=== PATIENT | male | born 1970 | race African-American/Black ===

== ENCOUNTER 2019-12-17 17:09 | Inpatient (IN) | payer BC, SELFPAY ==
[2019-12-17] VITALS (9 sets, daily range): BP systolic 134–173; BP diastolic 67–91; PULSE 88–111; RESP 15–28; TEMP 36.9–38.1; O2SAT 92–97; BMI 40.9; BMI 39.8; BMI 39.9
--- NOTE | 2019-12-17 17:33 | ED.VIS.GEN ---
History of Present Illness Chief Complaint: Fever Informant: Patient Onset: Today Context: Gradual Onset Timing: Continuous Quality: subjective Current Severity: Moderate Maximum Severity: Moderate Worsened by: n/a Relieved by: n/a; hasn't taken anything Associated Symptoms: none except mild malaise Narrative: Patient denies any respiratory symptoms, cough, change in taste or smell, congestion, vomiting or diarrhea. No chest or abdominal pain. No problems urinating recently. He has no idea why he may have a fever. He states 7 months or so ago, he had cellulitis on his left velez that was treated successfully with antibiotics. Recent Illness/Hospitalization: No - Past Medical History (1) Anxiety and depression Status: Chronic (2) Type 2 diabetes mellitus Status: Chronic Past Medical History - Allergies and Home Meds Allergies/Adverse Reactions: Allergies hydromorphone [From Dilaudid] Adverse Reaction (Verified 12/17/19 17:11) Low blood pressure meperidine [From Demerol] Adverse Reaction (Verified 12/17/19 17:11) Itching Sulfa (Sulfonamide Antibiotics) Adverse Reaction (Verified 12/17/19 17:11) NEEDS FOLLOW-UP STEROIDS Allergy (Uncoded 12/17/19 17:11) Anaphylaxis Primary Care Physician: [facility] Doctor,Out of [NON-STAFF] - Surgical History: appendectomy - Along with partial colectomy due to complications of ruptured appendicitis Lives: With Family - in [place]; 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 Denies: Chills, Sweats Eyes: Denies: Visual changes - bilaterally, Diplopia ENT: Denies: Bilateral ear pain, Rhinorrhea, Sore throat Cardiovascular: Denies: Chest pain, Palpitations Respiratory: Denies: Dyspnea, Cough, Dyspnea on exertion Gastrointestinal: Denies: Abdominal pain, Nausea, Vomiting, Diarrhea, Melena, Hematochezia Genitourinary: Denies: Dysuria, Hematuria, Frequency Musculoskeletal: Denies: Neck pain, Back pain, Swelling, Extremity Pain Skin: Denies: Rash, Wounds Neurological: Denies: Headache, Weakness, Numbness Physical Exam Vital Signs/Narrative: Vital Signs Temp Pulse Resp BP Pulse Ox 12/17/19 17:23 108 H 17 164/82 H 92 12/17/19 17:12 100.2 F H 99 15 161/85 H 92 Inital Vital Signs reviewed: Yes General: Well nourished, Well developed, Obese, No Acute Distress Head: Normocephalic, Atraumatic Eyes: Perrl, EOMI ENT: Moist mucous membranes, No rhinorrhea. Negative for: Sinus tenderness Neck: Supple, Nontender, No lymphadenopathy Cardiovascular: Regular rate, Regular rhythm, No murmurs. Negative for: Tachycardia Respiratory: No distress, CTA bilaterally, Chest nontender Abdomen: Soft, Nontender, Nondistended, Normal bowel sounds Back: Nontender, Normal Inspection. Negative for: CVA tenderness Extremities: No edema, Tenderness - Along rash on left velez, full range of motion throughout the left lower extremity and all other extremities., - - No inguinal lymphadenopathy bilaterally. Skin: Normal color, No Trauma, Rash - Scattered, tender, blanching erythematous rash left velez only. No abscess, swelling, bullae, petechiae/purpura., - - No lymphangitis left lower extremity. Erythema limited to the left velez and does not progress to the knee. Neurological: Alert, Oriented x3, Cranial nerves II-XII grossly intact, Normal Strength, Normal Sensation, Normal Gait Psychological: Normal affect, Normal Mood Diagnostic/Tx/Re-eval Impressions Chest X-Ray 12/17/19 17:37 IMPRESSION: Left hemidiaphragm is mildly elevated. There is left costophrenic angle blunting which may represent small effusion or pleural reaction. Electronically Signed: Buddy Trujillo MD at 18:18 EDT , Service support , 12/17/19 17:37 Chest 1 View (Portable) [RAD] Stat Laboratory Results 12/17/19 12/17/19 12/17/19 17:54 17:54 17:54 WBC 17.2 H RBC 5.20 Hgb 16.2 Hct 46.9 MCV 90.2 MCH 31.2 MCHC 34.5 RDW Std Deviation 43.9 RDW Coeff of Lupe 13.2 Plt Count 169 MPV 10.0 Immature Gran % (Auto) 0.300 Neut % (Auto) 86.9 H Lymph % (Auto) 6.4 L [place] % (Auto) 6.0 Eos % (Auto) 0.1 Baso % (Auto) 0.3 Absolute Neuts (auto) 14.9 H Absolute Lymphs (auto) 1.09 Nucleated RBC % 0 PT 12.8 INR 1.0 APTT 31.2 Sodium 133 L Potassium 4.7 Chloride 100 Carbon Dioxide 23.0 Anion Gap 10 BUN 13 Creatinine 1.04 Estim Creat Clear Calc 92.23 Est GFR (MDRD) Af Amer 97 Est GFR (MDRD) Non-Af 80 BUN/Creatinine Ratio 12.5 Glucose 195 H Lactic Acid Calcium 8.8 Total Bilirubin 0.90 AST 50 H ALT 54 Alkaline Phosphatase 91 Troponin I < 0.015 Total Protein 7.2 Albumin 3.7 Globulin 3.5 Albumin/Globulin Ratio 1.1 Urine Color Urine Clarity Urine pH Ur Specific [place] Urine Protein Urine Glucose (UA) Urine Ketones Urine Occult Blood Urine Nitrite Urine Bilirubin Urine Urobilinogen Ur Leukocyte Esterase Urine RBC Urine WBC Ur Squamous Epith Cells Urine Bacteria Urine Mucus 12/17/19 12/17/19 17:54 18:10 WBC RBC Hgb Hct MCV MCH MCHC RDW Std Deviation RDW Coeff of Lupe Plt Count MPV Immature Gran % (Auto) Neut % (Auto) Lymph % (Auto) [place] % (Auto) Eos % (Auto) Baso % (Auto) Absolute Neuts (auto) Absolute Lymphs (auto) Nucleated RBC % PT INR APTT Sodium Potassium Chloride Carbon Dioxide Anion Gap BUN Creatinine Estim Creat Clear Calc Est GFR (MDRD) Af Amer Est GFR (MDRD) Non-Af BUN/Creatinine Ratio Glucose Lactic Acid 1.4 Calcium Total Bilirubin AST ALT Alkaline Phosphatase Troponin I Total Protein Albumin Globulin Albumin/Globulin Ratio Urine Color Yellow Urine Clarity Sl. Cloudy Urine pH 6.5 Ur Specific [place] 1.010 Urine Protein Negative Urine Glucose (UA) Normal Urine Ketones 15 H Urine Occult Blood Negative Urine Nitrite Negative Urine Bilirubin Negative Urine Urobilinogen Normal Ur Leukocyte Esterase Negative Urine RBC 0 SEEN Urine WBC 0 SEEN Ur Squamous Epith Cells 0-5 SEEN Urine Bacteria 0 SEEN Urine Mucus 0 SEEN - Medical Decision Making Patient has what appears to possibly be early cellulitis of the left lower leg. Before I found it on exam, he had not noticed the redness. It is mildly tender, and after we discussed it, he states that this is what he thinks his cellulitis before looked like early on. He states he initially was seen in the emergency department and they did not think it was cellulitis but then he saw his doctor and was diagnosed with cellulitis, put on antibiotics, which eventually took care of it. He does not remember the antibiotic. Septic work-up was performed here to rule out other causes, especially because his oxygen levels are borderline low, we put him on some supplemental nasal cannula oxygen while working him up, providing empiric Unasyn after cultures were obtained. He does have a leukocytosis, the rest of the work-up other than borderline hyperglycemia 195, is relatively unremarkable, but he meets criteria for sepsis with his fever that continue to increase during the ED course despite initially treating with acetaminophen 1000 mg, and his leukocytosis. His chest x-ray does not show anything focal, a mildly elevated left hemidiaphragm along with mild blunting is noted. After the above treatment he was removed from his oxygen and maintained saturations above 90%. At this time I do not see any sign of a DVT, nor do I think he needs to be evaluated for pulmonary embolus. However, since his fever increased he felt worse. In trying to ambulate him, he felt very lightheaded and had a lot of pain with trying to bear weight on his left lower extremity. The cellulitis that was very faint initially on his left lower leg/velez is now much more prominent and obvious, although it has not spread. There is no subcutaneous emphysema and I think this is unlikely to be necrotizing fasciitis. However I think it is reasonable to admit him with continued IV antibiotic therapy. Discussed with hospitalist. ED Disposition - Plan for ED Patient: Disposition: Acute Care Hospital [facility] Diagnosis: Cellulitis of left lower leg, Hyperglycemia due to type 2 diabetes mellitus, Sepsis Referrals: [facility] Doctor,Out of [NON-STAFF] -
--- NOTE | 2019-12-17 17:37 | RAD_ITS ---
STUDY: X-RAY CHEST REASON FOR EXAM: Male, 49 years old. FEVER TECHNIQUE: Single AP portable view of the chest. COMPARISON: None. FINDINGS: The lungs are clear and expanded. The left hemidiaphragm is mildly elevated. There is left costophrenic angle blunting. Normal size heart. Normal mediastinum and aleks. Normal visualized pulmonary arteries. Normal visualized aortic arch and descending thoracic aorta. Normal visualized thoracic spine. Normal visualized ribs, clavicles, and shoulders. There is no demonstrated abnormality of the visualized soft tissue structures of the upper abdomen. RAD/Chest 1 View (Portable) IMPRESSION: Left hemidiaphragm is mildly elevated. There is left costophrenic angle blunting which may represent small effusion or pleural reaction. Electronically Signed: Buddy Trujillo MD at 18:18 EDT , Service support ,
[2019-12-17] MEDS: Acetaminophen 500 MG Tablet 1000 MG PO (17:53)
[2019-12-17 18:10] LABS: Absolute Lymphocyte Count 1.09 X10^3/uL (0.83-4.51); Absolute Neutrophil Count 14.9 X10^3/uL (2.0-7.7); Basophil# 0.05 X10^3/uL; Basophil% 0.3 % (0-1); Eosinophil# 0.01 X10^3/uL; Eosinophils% 0.1 % (0-5); Hematocrit 46.9 % (40-54); Hemoglobin 16.2 g/dL (13.0-16.5); Lymphocyte # 1.09 X10^3/ul (4.0); Lymphocyte % 6.4 % (19-41); Mean Corp Hgb Conc 34.5 g/dL (32-36); Mean Corpuscular Hgb 31.2 pg (27.0-32.0); Mean Corpuscular Volume 90.2 fL (80-94); Monocyte# 1.03 X10^3/uL; NRBC Flagged by Analyzer 0 % (0-5); Neutrophil # 14.92 X10^3/uL (2.7-7.7); Neutrophil % 86.9 % (47-70); Platelet Count 169 K/mm3 (150-450); RBC Distribution Width CV 13.2 % (11.6-14.6); RBC Distribution Width SD 43.9 fl (35.1-43.9); White Blood Count 17.2 K/mm3 (4.4-11.0)
[2019-12-17 18:15] LABS: Prothrombin Time (Protime)PT. 12.8 SECONDS (11.7-14.9)
[2019-12-17 18:16] LABS: Partial Thromboplast Time 31.2 Seconds (24.1-36.2)
[2019-12-17 18:24] LABS: ALB/GLOB Ratio 1.1 RATIO (0.9-2.4); AST(SGOT) 50 U/L (15-37); Alanine Aminotransfer ALT/SGPT 54 U/L (16-61); Albumin, Serum 3.7 g/dL (3.2-5.0); Alkaline Phosphatase 91 U/L (45-117); Anion Gap 10 (5-15); BUN 13 mg/dL (7-18); BUN/Creat Ratio 12.5 RATIO (10-20); Calcium,Total 8.8 mg/dL (8.5-10.1); Chloride 100 mmol/L (98-107); Creatinine, Serum 1.04 mg/dL (0.70-1.30); EST Glomerular Filtration Rate 80 mL/min (>60); Est Glom Filt Rate - Afr Amer 97 mL/min (>60); Estimated Creatinine Clearance 92.23 ml/min; Globulin 3.5 g/dL (2.2-4.2); Glucose 195 mg/dL (74-106); Potassium 4.7 mmol/L (3.5-5.1); Protein, Total 7.2 g/dL (6.4-8.2); Sodium Level 133 mmol/L (136-145)
[2019-12-17 18:29] LABS: Bacteria 0 SEEN /hpf (None Seen); Mucous, Urine 0 SEEN /hpf (<or=2+); Red Blood Cells-Urine 0 SEEN /hpf (0-5); White Blood Cells 0 SEEN /hpf (0-5)
[2019-12-17 18:33] LABS: Lactic Acid 1.4 mmol/L (0.4-1.9)
[2019-12-17 18:37] LABS: Color, Urine Yellow (Yellow); Glucose, Dipstick Normal (Normal); Ketone-Dipstick 15 mg/dl (Negative); Leukocyte Esterase-Dipstick Negative /ul (Negative); Nitrite-Dipstick Negative (Negative); Occult Blood-Urine Negative /ul (Negative); Protein-Dipstick Negative (Negative); Urine Bilirubin Dipstick Negative (Negative); Urine Clarity Sl. Cloudy (Clear); Urine Urobilinogen Normal (Normal); Urine pH 6.5 (5.0 - 8.0)
[2019-12-17 19:02] LABS: Squamous Epithelial Cells - UA 0-5 SEEN /hpf (0-5)
--- NOTE | 2019-12-17 20:42 | HP.PCM_ITS ---
Problem List (1) Fever and chills Status: Acute (2) Left leg redness Status: Acute History of Present Illness Date of Admission: 12/17/19 Chief Complaint: Fever and chills, left leg redness The patient is a 49 year old M who was seen in the emergency room at [facility] with a chief complaint of fever and chills which started today along with left leg redness and warmth. Patient denies any cough, he denies any diarrhea, he denies any chest pain. Work-up in the emergency room included labs which revealed a white blood cell count at 17.2, patient's lactic acid was not elevated, chemistry was remarkable for a sodium of 133, glucose of 195, and an AST of 50. Chest x-ray showed a slight elevation of the left hemidiaphragm, patient's temperature was 100.6 after administration of Tylenol. Examination revealed the patient's left lower leg to be reddened and warm, patient appeared flushed, physical exam is otherwise unremarkable. Patient will be admitted for acute sepsis secondary to left lower leg cellulitis, he was given Unasyn IV in the emergency room, I will switch him to Ancef 2 g every 8 hours when he is admitted to the hospital. Further note, patient states that he had an episode of cellulitis in that same leg a few months ago but was treated as an outpatient, he denies any history of MRSA. Past Medical History Past Medical History (Chronic Problems): Chronic Problems Anxiety and depression (Chronic) Type 2 diabetes mellitus (Chronic) Allergies hydromorphone [From Dilaudid] Adverse Reaction (Verified 12/17/19 17:11) Low blood pressure meperidine [From Demerol] Adverse Reaction (Verified 12/17/19 17:11) Itching Sulfa (Sulfonamide Antibiotics) Adverse Reaction (Verified 12/17/19 17:11) NEEDS FOLLOW-UP STEROIDS Allergy (Uncoded 12/17/19 17:11) Anaphylaxis Home Medications: Ambulatory Orders Medication Instructions Recorded Sertraline HCl [Zoloft] 25 mg PO DAILY 12/17/19 Surgical History: appendectomy - Along with partial colectomy due to complications of ruptured appendicitis, - - Craniotomy secondary to brain tumor Psychiatric History: Anxiety Lives: With Family - in [place]; 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 Denies: Anorexia, Night Sweats, Weakness, Weight Change, Fatigue Eyes: Denies: Cataracts, Conjunctivae Inflammation, Double vision, Drainage HEENT: Denies: Difficulty Swallowing, Dysphasia, Ear Pain, Eye Pain, Hearing Giana nges, Nasal bleeding, Nasal Congestion, Post Nasal Drip Cardiovascular: Denies: Chest Pain, Claudication, Chest Pressure, Chest Tightness, Edema, Heaviness, Palpitations Respiratory: Denies: Cough, Hemoptysis, Pleuritic Pain, Shortness of Breath, Shortness of breath at rest, Shortness of breath upon exertion, Sputum production Gastrointestinal: Denies: Abdominal Pain, Constipation, Diarrhea, Hematemesis, Hematochezia, Nausea, Melena, Vomiting Genitourinary: Denies: Dysuria, Frequency, Hematuria, Hesitancy, Urgency Musculoskeletal: Reports: Leg Pain - Left lower extremity redness and discomfort. Denies: Back Pain, Foot Pain, Hand Pain, Joint Pain, Joint stiffness, Joint swelling, Joint Tenderness Skin: Reports: Rash - Over his left lower leg. Denies: Dryness, Jaundice, Pruritis Neurological: Denies: Blurred vision, Double vision, Change in Speech, Slurred speech, Difficulty swallowing, Focal weakness, Headaches, Incoordination, Numbness, Tingling Psychiatric: Reports: Anxiety. Denies: Depression, Homicidal Ideations, Suicidal Ideations Endocrine: Denies: Change in Body Habitus, Heat/ Cold Intolerance, Polydipsia, Polyuria Hematologic/ Lymphatic: Denies: Adenopathy, Anemia, Easy Bruising, Easy Bleeding, Petechiae, Purpura VTE Information - Inpt Only VTE Present on Admission: No VTE Mechan Device Prophylaxis: None VTE Pharm Prophylaxis ordered?: Yes Patient Problems: Active and Suspected Problems Cellulitis of left lower leg (Acute) Hyperglycemia due to type 2 diabetes mellitus (Acute) Sepsis (Acute) Fever and chills (Acute) Left leg redness (Acute) - Physical Exam Vitals/I&O's: Vital Signs Temp Pulse Resp BP Pulse Ox 100.6 F H 106 H 26 H 145/90 H 92 12/17/19 20:00 12/17/19 20:00 12/17/19 20:00 12/17/19 20:00 12/17/19 20:00 Oxygen Flow Rate (L/min) 2 Oxygen Delivery Method Room Air Weight: 137 kg Body Mass Index (BMI) 40.9 Intake and Output for Last 24 Hours 12/15/19 12/16/19 12/17/19 23:59 23:59 23:59 Intake Total 112 / 112 Balance 112 / 112 General: Alert, Oriented x3, Cooperative, Well developed, Well nourished, - - Patient's face appears flushed and reddened HEENT: Atraumatic, PERRLA, EOMI, Normocephalic Oral: Moist Mucosa Neck: Supple, No JVD, Negative Carotid Bruits, Trachea Midline, Thyroid Normal Size and Texture Lungs: Clear to auscultation, Normal air movement, No rhonchi, No wheeze, No rales Cardiovascular: Regular rate, Regular Rhythm, Normal S1, Normal S2, No murmurs, Tachycardic Abdomen: Bowel Sounds Present, Soft, Non Tender, Non-Distended, Obese Extremities: No clubbing, No cyanosis, Capillary Refill Less than 3 Seconds, Edema - There is generalized edema to the left lower leg along with redness and warmth over the left lower leg, Tenderness - Over left lower leg Skin: No breakdown, Rash Present - Over the left lower leg Musculoskeletal: Tenderness - Tenderness to palpation over the left lower leg Neurological: Cranial nerves II-XII grossly intact, Neuro grossly intact, Sensory exam intact to light touch and pain, Coordination normal Psych/Mental Status: Normal Affect, Appropriate, Alert and oriented to time, place, person, mood and affect Laboratory Results 12/17/19 17:54: Sodium 133 L, Potassium 4.7, Chloride 100, Carbon Dioxide 23.0, Anion Gap 10, BUN 13, Creatinine 1.04, Estim Creat Clear Calc 92.23, Est GFR (MDRD) Af Amer 97, Est GFR (MDRD) Non-Af 80, BUN/Creatinine Ratio 12.5, Glucose 195 H, Calcium 8.8, Total Bilirubin 0.90, AST 50 H, ALT 54, Alkaline Phosphatase 91, Troponin I < 0.015, Total Protein 7.2, Albumin 3.7, Globulin 3.5, Albumin/Globulin Ratio 1.1 12/17/19 17:54: WBC 17.2 H, RBC 5.20, Hgb 16.2, Hct 46.9, MCV 90.2, MCH 31.2, MCHC 34.5, RDW Std Deviation 43.9, RDW Coeff of Lupe 13.2, Plt Count 169, MPV 10.0, Immature Gran % (Auto) 0.300, Neut % (Auto) 86.9 H, Lymph % (Auto) 6.4 L, [place] % (Auto) 6.0, Eos % (Auto) 0.1, Baso % (Auto) 0.3, Absolute Neuts (auto) 14.9 H, Absolute Lymphs (auto) 1.09, Nucleated RBC % 0 12/17/19 17:54: PT 12.8, INR 1.0, APTT 31.2 12/17/19 17:54: Lactic Acid 1.4 12/17/19 18:10: Urine Color Yellow, Urine Clarity Sl. Cloudy, Urine pH 6.5, Ur Specific [place] 1.010, Urine Protein Negative, Urine Glucose (UA) Normal, Urine Ketones 15 H, Urine Occult Blood Negative, Urine Nitrite Negative, Urine Bilirubin Negative, Urine Urobilinogen Normal, Ur Leukocyte Esterase Negative, Urine RBC 0 SEEN, Urine WBC 0 SEEN, Ur Squamous Epith Cells 0-5 SEEN, Urine Bacteria 0 SEEN, Urine Mucus 0 SEEN Assessment/Plan All Active Problems Cellulitis of left lower leg (Acute) Hyperglycemia due to type 2 diabetes mellitus (Acute) Sepsis (Acute) Fever and chills (Acute) Left leg redness (Acute) #1 acute sepsis secondary to left lower leg cellulitis-patient will be admitted to [facility], he will receive IV fluids, he will be maintained on IV Ancef, labs will be repeated tomorrow #2 cellulitis of the left lower leg-suspect either staph or strep, IV Ancef will be administered #3 hyperglycemia-possibly undiagnosed type 2 diabetes, blood sugars will be monitored, sliding scale insulin will be administered, hemoglobin A1c was ordered #4 fatty liver by history #5 class III obesity #6 chronic anxiety-patient is on [facility] Inpatient E&M: [id number] Init Hosp L3
[2019-12-17] MEDS: Acetaminophen 325 MG Tablet 650 MG PO (22:07)
[2019-12-17] MEDS: Cefazolin 2 GM in 0.9% Normal Saline 100 ML IV (22:21)
[2019-12-17] MEDS: 0.9% Normal Saline 1,000 ML 150 ML IV (22:21)
[2019-12-17] MEDS: 0.9% Saline Lock 10 ML Syringe IV (22:24)
[2019-12-17] MEDS: Ondansetron 4 MG/2 ML Vial IV (22:24)
[2019-12-17] MEDS: Heparin Injection (Vial) 5,000 UNIT/ML VIAL 5000 UNIT SC (22:27)
[2019-12-17 22:56] LABS: Bedside Glucose 169 mg/dL (70-110)
--- NOTE | 2019-12-17 23:34 | CPS ---
Pt.'s home CPAP unit set-up in his room; no oxygen or humidity used in-line with unit
[2019-12-18 04:03] VITALS: BP 130/65; PULSE 75; RESP 18; TEMP 36.8; O2SAT 96
[2019-12-18] MEDS: Acetaminophen 325 MG Tablet 650 MG PO ×3 (04:08→18:35)
[2019-12-18] MEDS: Cefazolin 2 GM in 0.9% Normal Saline 100 ML IV ×3 (05:05→21:52)
[2019-12-18] MEDS: 0.9% Normal Saline 1,000 ML 150 ML IV ×3 (05:57→19:56)
[2019-12-18] MEDS: oxyCODONE 5 MG Tablet 10 MG PO ×4 (06:41→21:52)
[2019-12-18 06:46] LABS: Bedside Glucose 151 mg/dL (70-110)
[2019-12-18 06:54] LABS: Absolute Neutrophil Count 11.2 X10^3/uL (2.0-7.7); Basophil# 0.01 X10^3/uL; Basophil% 0.1 % (0-1); Hematocrit 44.8 % (40-54); Hemoglobin 15.2 g/dL (13.0-16.5); Lymphocyte % 11.1 % (19-41); Mean Corp Hgb Conc 33.9 g/dL (32-36); Mean Corpuscular Hgb 30.7 pg (27.0-32.0); Mean Corpuscular Volume 90.5 fL (80-94); Monocyte# 0.81 X10^3/uL; NRBC Flagged by Analyzer 0 % (0-5); Neutrophil # 11.19 X10^3/uL (2.7-7.7); Neutrophil % 82.6 % (47-70); Platelet Count 132 K/mm3 (150-450); RBC Distribution Width CV 13.3 % (11.6-14.6); RBC Distribution Width SD 44.2 fl (35.1-43.9); Red Blood Count 4.95 M/mm3 (4.6-6.2); White Blood Count 13.5 K/mm3 (4.4-11.0)
[2019-12-18 07:21] LABS: Hemoglobin A1c 8.2 % (4.2-6.3)
[2019-12-18 08:08] VITALS: PULSE 80
[2019-12-18 08:20] VITALS: BP 115/66; PULSE 75; RESP 18; TEMP 36.9; O2SAT 96
[2019-12-18] MEDS: Sertraline 50 MG Tablet 25 MG PO (08:24)
[2019-12-18] MEDS: Heparin Injection (Vial) 5,000 UNIT/ML VIAL 5000 UNIT SC (08:25)
--- NOTE | 2019-12-18 10:30 | CASEMGMT ---
RN PIERCE Face to Face with patient for initial transition planning/care coordination assessment. RN CM introduced self and role at [facility]. Patient lying in bed, alert and oriented. Patient willing to participate in assessment and is able to answer all questions appropriately. Care providers, pharmacy, and demographics verified. Patient wishes to discharge home, denies need for home health at this time. Patient states he has no further needs or concerns at this time. CM to follow for discharge planning needs that may arise. 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 Transportation: self, will need taxi to his truck at [facility] DME/HHC: Patient has cpap at bedside, denies additional DME. Disposition Plan: Patient to discharge home with family support and follow-up plans in place. Christa ALARCON, RN, CM
--- NOTE | 2019-12-18 10:48 | PN_ITS ---
Patient Problems: Active and Suspected Problems Cellulitis of left lower leg (Acute) Hyperglycemia due to type 2 diabetes mellitus (Acute) Sepsis (Acute) Fever and chills (Acute) Left leg redness (Acute) Subjective: Patient seen and examined. He was admitted with a complaint of left leg redness as well as fever and chills and is been managed for sepsis due to cellulitis of the left lower extremity. He is currently on IV cefazolin. Patient complains of headache today. He still complains of occasional chills but denies any fever. He is he still has the pain and swelling in his left lower extremity and states the last time he had cellulitis of that extremity, it took a while to get better. Review of systems otherwise negative. Vitals/I&O's: Vital Signs Temp Pulse Resp BP Pulse Ox 98.4 F 75 18 115/66 96 12/18/19 08:20 12/18/19 08:20 12/18/19 08:20 12/18/19 08:20 12/18/19 08:20 Oxygen Flow Rate (L/min) 2 Oxygen Delivery Method Room Air Weight: 293 lb 14.019 oz Body Mass Index (BMI) 39.8 Intake and Output for Last 24 Hours 12/16/19 12/17/19 12/18/19 23:59 23:59 23:59 Intake Total 222 / 462 1630 / 1630 Output Total 1675 / 1675 Balance 222 / -88 -45 / -45 General: Alert, Oriented x3, Cooperative, No apparent distress HEENT: Atraumatic, PERRLA, EOMI, Normocephalic Oral: Moist Mucosa Neck: Supple, No JVD, Negative Carotid Bruits Lungs: Clear to auscultation, Normal air movement, No rhonchi, No wheeze Cardiovascular: Regular rate, Regular Rhythm, Normal S1, Normal S2, No murmurs Abdomen: Bowel Sounds Present, Soft, Non Tender, Non-Distended, No Hepato- splenomegaly Extremities: No clubbing, No cyanosis, No edema, Capillary Refill Less than 3 Seconds, - Skin: - - redness, differential warmth and tenderness over left velez area; mild swelling. Musculoskeletal: No Tenderness to Palpation of Joints or Extremities, - - no calf swelling or tenderness Neurological: Cranial nerves II-XII grossly intact Psych/Mental Status: Normal Affect, Appropriate, Alert and oriented to time, place, person, mood and affect Laboratory Results 12/17/19 17:54: Sodium 133 L, Potassium 4.7, Chloride 100, Carbon Dioxide 23.0, Anion Gap 10, BUN 13, Creatinine 1.04, Estim Creat Clear Calc 92.23, Est GFR (MDRD) Af Amer 97, Est GFR (MDRD) Non-Af 80, BUN/Creatinine Ratio 12.5, Glucose 195 H, Calcium 8.8, Total Bilirubin 0.90, AST 50 H, ALT 54, Alkaline Phosphatase 91, Troponin I < 0.015, Total Protein 7.2, Albumin 3.7, Globulin 3.5, Albumin/Globulin Ratio 1.1 12/17/19 17:54: WBC 17.2 H, RBC 5.20, Hgb 16.2, Hct 46.9, MCV 90.2, MCH 31.2, MCHC 34.5, RDW Std Deviation 43.9, RDW Coeff of Lupe 13.2, Plt Count 169, MPV 10.0, Immature Gran % (Auto) 0.300, Neut % (Auto) 86.9 H, Lymph % (Auto) 6.4 L, [place] % (Auto) 6.0, Eos % (Auto) 0.1, Baso % (Auto) 0.3, Absolute Neuts (auto) 1 4.9 H, Absolute Lymphs (auto) 1.09, Nucleated RBC % 0 12/17/19 17:54: PT 12.8, INR 1.0, APTT 31.2 12/17/19 17:54: Lactic Acid 1.4 12/17/19 18:10: Urine Color Yellow, Urine Clarity Sl. Cloudy, Urine pH 6.5, Ur Specific [place] 1.010, Urine Protein Negative, Urine Glucose (UA) Normal, Urine Ketones 15 H, Urine Occult Blood Negative, Urine Nitrite Negative, Urine Bilirubin Negative, Urine Urobilinogen Normal, Ur Leukocyte Esterase Negative, Urine RBC 0 SEEN, Urine WBC 0 SEEN, Ur Squamous Epith Cells 0-5 SEEN, Urine Bacteria 0 SEEN, Urine Mucus 0 SEEN 12/17/19 22:11: POC Glucose 169 H 12/18/19 06:34: WBC 13.5 H, RBC 4.95, Hgb 15.2, Hct 44.8, MCV 90.5, MCH 30.7, MCHC 33.9, RDW Std Deviation 44.2 H, RDW Coeff of Lupe 13.3, Plt Count 132 L, MPV 10.0, Immature Gran % (Auto) 0.200, Neut % (Auto) 82.6 H, Lymph % (Auto) 11.1 L, [place] % (Auto) 6.0, Eos % (Auto) 0.0, Baso % (Auto) 0.1, Absolute Neuts (auto) 11.2 H, Absolute Lymphs (auto) 1.50, Nucleated RBC % 0 12/18/19 06:34: Hemoglobin A1c 8.2 H 12/18/19 06:36: POC Glucose 151 H Diagnostic Data Chest X-Ray 12/17/19 17:37 IMPRESSION: Left hemidiaphragm is mildly elevated. There is left costophrenic angle blunting which may represent small effusion or pleural reaction. Electronically Signed: Buddy Trujillo MD at 18:18 EDT , Service support , Current Medications Acetaminophen (Tylenol) 650 mg PO Q6H PRN PRN PRN Reason: Pain Score 1-10/Temp > 100.7 F Last Admin: 12/18/19 10:02 Dose: 650 mg Documented by: Dextrose (D50w Syringe) 0 gm IV X1 PRN; Protocol PRN Reason: Hypoglycemia Glucagon () 1 mg IM .X1 PRN PRN Reason: Hypoglycemia Heparin Sodium (Porcine) (Heparin Na) 5,000 unit SC Q12 [facility] Last Admin: 12/18/19 08:25 Dose: 5,000 unit Documented by: Sodium Chloride () 1,000 mls @ 150 mls/hr IV .Q6H40M [facility] Last Admin: 12/18/19 05:57 Dose: 150 mls/hr Documented by: Cefazolin Sodium 2 gm/ Sodium (Chloride) 110 mls @ 150 mls/hr IV Q8 [facility] Last Infusion: 12/18/19 05:49 Dose: Infused Documented by: Insulin Human Lispro (Humalog Kwikpen (Bkc)) 0 unit SC ACHS [facility]; Protocol Last Admin: 12/18/19 06:37 Dose: Not Given Documented by: Ondansetron HCl (Zofran) 4 mg IV Q8H PRN PRN PRN Reason: NAUSEA/VOMITING Last Admin: 12/17/19 22:24 Dose: 4 mg Documented by: Oxycodone HCl (Oxyir) 10 mg PO Q4H PRN PRN PRN Reason: Pain Score 4-10/10 Last Admin: 12/18/19 06:41 Dose: 5 mg Documented by: Sertraline HCl (Zoloft) 25 mg PO DAILY [facility] Last Admin: 12/18/19 08:24 Dose: 25 mg Documented by: Sodium Chloride () 10 - 40 ml IV UD PRN PRN Reason: SALINE FLUSH Last Admin: 12/17/19 22:24 Dose: 10 ml Documented by: Sodium Chloride ([place] Nasal [place]) 2 spray NASAL TID PRN PRN PRN Reason: NASAL DRYNESS Temazepam (Restoril) 15 mg PO QHS PRN PRN PRN Reason: INSOMNIA STROKE Vital Signs/Narrative: Vital Signs Temp Pulse Resp BP Pulse Ox 12/18/19 08:20 98.4 F 75 18 115/66 96 12/18/19 08:08 80 Medical Necessity - Tobacco Use Smoking Status: Former smoker Tobacco Use: Chew Assessment/Plan All Active Problems Cellulitis of left lower leg (Acute) Hyperglycemia due to type 2 diabetes mellitus (Acute) Sepsis (Acute) Fever and chills (Acute) Left leg redness (Acute) 1. Sepsis due to LLE cellulitis * SIRS criteria is 1- leucocytosis * on IV unasyn * wbc is down to 13.5 from 17 * continue gentle hydration with IVF * fall precautions * PT/OT on board * 2. Cellulitis of the LLE: as under 1 3. Type 2 diabetes mellitus * Not a known diabetic. A1c is 8.2. * Will start patient on metformin thousand milligrams twice daily. * Insulin sliding scale. Accu-Cheks AC at bedtime. * 4. History of fatty liver: Patient states he has a history of fatty liver. Is not clear whether it is from alcohol loss from [place]. Will check lipid panel. 5. Obesity: BMI is 39.9. Complicates acute care, expected recovery and prognosis. 6. Anxiety: On Zoloft [facility] 61562 Subs Hosp L2
[2019-12-18] MEDS: Insulin Lispro 100 UNIT/ML INSULN.PEN SC ×2 (10:58→21:51)
[2019-12-18] MEDS: Sodium Chloride 0.65% 1 SPRAY SPRAY.BTL 2 SPRAY NASAL (13:09)
[2019-12-18 14:35] VITALS: BP 130/76; PULSE 71; RESP 18; TEMP 36.4; O2SAT 97
[2019-12-18 16:45] LABS: Bedside Glucose 141 mg/dL (70-110)
[2019-12-18 18:35] LABS: Bedside Glucose 186 mg/dL (70-110)
[2019-12-18 20:03] VITALS: BP 124/64; PULSE 72; RESP 16; TEMP 36.4; O2SAT 98
[2019-12-18 22:00] LABS: Bedside Glucose 188 mg/dL (70-110)
[2019-12-19] MEDS: 0.9% Normal Saline 1,000 ML 150 ML IV ×4 (02:32→22:25)
[2019-12-19 02:36] VITALS: BP 126/70; PULSE 65; RESP 16; TEMP 36.6; O2SAT 97
[2019-12-19] MEDS: Cefazolin 2 GM in 0.9% Normal Saline 100 ML IV ×3 (06:03→22:25)
[2019-12-19 06:16] LABS: Bedside Glucose 140 mg/dL (70-110)
[2019-12-19] MEDS: Acetaminophen 325 MG Tablet 650 MG PO ×2 (06:38→14:28)
[2019-12-19 07:06] LABS: Absolute Lymphocyte Count 3.05 X10^3/uL (0.83-4.51); Absolute Neutrophil Count 3.3 X10^3/uL (2.0-7.7); Basophil# 0.05 X10^3/uL; Basophil% 0.7 % (0-1); Eosinophil# 0.12 X10^3/uL; Eosinophils% 1.6 % (0-5); Hematocrit 49.7 % (40-54); Hemoglobin 16.5 g/dL (13.0-16.5); Lymphocyte # 3.05 X10^3/ul (4.0); Lymphocyte % 40.8 % (19-41); Mean Corp Hgb Conc 33.2 g/dL (32-36); Mean Corpuscular Hgb 30.8 pg (27.0-32.0); Mean Corpuscular Volume 92.7 fL (80-94); Mean Platelet Vol. 9.9 fl (6.2-12.0); Monocyte# 0.92 X10^3/uL; Monocyte% 12.3 % (0-10); NRBC Flagged by Analyzer 0 % (0-5); Neutrophil # 3.31 X10^3/uL (2.7-7.7); Neutrophil % 44.3 % (47-70); Platelet Count 143 K/mm3 (150-450); RBC Distribution Width CV 13.6 % (11.6-14.6); RBC Distribution Width SD 46.3 fl (35.1-43.9); Red Blood Count 5.36 M/mm3 (4.6-6.2); White Blood Count 7.5 K/mm3 (4.4-11.0)
[2019-12-19 07:30] LABS: Anion Gap 6 (5-15); BUN 11 mg/dL (7-18); BUN/Creat Ratio 12.9 RATIO (10-20); Calcium,Total 8.5 mg/dL (8.5-10.1); Chloride 103 mmol/L (98-107); Creatinine, Serum 0.85 mg/dL (0.70-1.30); EST Glomerular Filtration Rate 100 mL/min (>60); Est Glom Filt Rate - Afr Amer 122 mL/min (>60); Estimated Creatinine Clearance 112.85 ml/min; Glucose 155 mg/dL (74-106); Potassium 4.1 mmol/L (3.5-5.1); Sodium Level 137 mmol/L (136-145)
[2019-12-19 07:49] VITALS: PULSE 80
[2019-12-19] MEDS: Sertraline 50 MG Tablet 25 MG PO (07:55)
[2019-12-19] MEDS: Heparin Injection (Vial) 5,000 UNIT/ML VIAL 5000 UNIT SC ×2 (07:55→22:26)
--- NOTE | 2019-12-19 09:32 | PCM.PN.HOSP ---
Patient Problems: Active and Suspected Problems Cellulitis of left lower leg (Acute) Hyperglycemia due to type 2 diabetes mellitus (Acute) Sepsis (Acute) Fever and chills (Acute) Left leg redness (Acute) Subjective: Patient seen and examined. He states the redness on his leg is getting better but he still has pain when he ambulates on the affected lower extremity. He denies fever or chills. Review of systems otherwise negative. WBC has trended down to 7.5. Vitals/I&O's: Vital Signs Temp Pulse Resp BP Pulse Ox 97.8 F 80 16 126/70 H 97 12/19/19 02:36 12/19/19 07:49 12/19/19 02:36 12/19/19 02:36 12/19/19 02:36 Oxygen Flow Rate (L/min) 2 Oxygen Delivery Method Room Air Weight: 293 lb 14.019 oz Body Mass Index (BMI) 39.8 Intake and Output for Last 24 Hours 12/17/19 12/18/19 12/19/19 23:59 23:59 23:59 Intake Total 222 / 462 5032.5 / 5032.5 1999 Output Total 1675 / 1675 550 / 550 Balance 222 / -88 3357.5 / 3357.5 1450 / 1450 General: Alert, Oriented x3, Cooperative, No apparent distress HEENT: Atraumatic, PERRLA, EOMI, Normocephalic Oral: Moist Mucosa Neck: Supple, No JVD, Negative Carotid Bruits Lungs: Clear to auscultation, Normal air movement, No rhonchi, No wheeze Cardiovascular: Regular rate, Regular Rhythm, Normal S1, Normal S2, No murmurs Abdomen: Bowel Sounds Present, Soft, Non Tender, Non-Distended, No Hepato-splenomegaly Extremities: No clubbing, No cyanosis, No edema, Capillary Refill Less than 3 Seconds, - Skin: - - redness, differential warmth and tenderness over left velez areaa is improving, with minimal swelling. Musculoskeletal: No Tenderness to Palpation of Joints or Extremities, - - no calf swelling or tenderness Neurological: Cranial nerves II-XII grossly intact Psych/Mental Status: Normal Affect, Appropriate, Alert and oriented to time, place, person, mood and affect Microbiology Past 72 Hours 12/17/19 18:10 Urine, Clean Catch Urine Culture - Preliminary Culture exhibits no growth. Laboratory Results 12/18/19 10:54: POC Glucose 186 H 12/18/19 16:10: POC Glucose 141 H 12/18/19 21:51: POC Glucose 188 H 12/19/19 06:08: POC Glucose 140 H 12/19/19 06:20: WBC 7.5, RBC 5.36, Hgb 16.5, Hct 49.7, MCV 92.7, MCH 30.8, MCHC 33.2, RDW Std Deviation 46.3 H, RDW Coeff of Lupe 13.6, Plt Count 143 L, MPV 9.9, Immature Gran % (Auto) 0.300, Neut % (Auto) 44.3 L, Lymph % (Auto) 40.8, [place] % (Auto) 12.3 H, Eos % (Auto) 1.6, Baso % (Auto) 0.7, Absolute Neuts (auto) 3.3, Absolute Lymphs (auto) 3.05, Nucleated RBC % 0 12/19/19 06:20: Sodium 137, Potassium 4.1, Chloride 103, Carbon Dioxide 28.0, Anion Gap 6, BUN 11, Creatinine 0.85, Estim Creat Clear Calc 112.85, Est GFR (MDRD) Af Amer 122, Est GFR (MDRD) Non-Af 100, BUN/Creatinine Ratio 12.9, Glucose 155 H, Calcium 8.5 Current Medications Acetaminophen (Tylenol) 650 mg PO Q6H PRN PRN PRN Reason: Pain Score 1-10/Temp > 100.7 F Last Admin: 12/19/19 06:38 Dose: 650 mg Documented by: Dextrose (D50w Syringe) 0 gm IV X1 PRN; Protocol PRN Reason: Hypoglycemia Glucagon () 1 mg IM .X1 PRN PRN Reason: Hypoglycemia Heparin Sodium (Porcine) (Heparin Na) 5,000 unit SC Q12 [facility] Last Admin: 12/19/19 07:55 Dose: 5,000 unit Documented by: Sodium Chloride () 1,000 mls @ 150 mls/hr IV .Q6H40M [facility] Last Admin: 12/19/19 02:32 Dose: 150 mls/hr Documented by: Cefazolin Sodium 2 gm/ Sodium (Chloride) 110 mls @ 150 mls/hr IV Q8 [facility] Last Infusion: 12/19/19 06:50 Dose: Infused Documented by: Insulin Human Lispro (Humalog Kwikpen (Bkc)) 0 unit SC [facility]; Protocol Last Admin: 12/19/19 06:09 Dose: Not Given Documented by: Ondansetron HCl (Zofran) 4 mg IV Q8H PRN PRN PRN Reason: NAUSEA/VOMITING Last Admin: 12/17/19 22:24 Dose: 4 mg Documented by: Oxycodone HCl (Oxyir) 10 mg PO Q4H PRN PRN PRN Reason: Pain Score 4-10/10 Last Admin: 12/18/19 21:52 Dose: 10 mg Documented by: Sertraline HCl (Zoloft) 25 mg PO DAILY [facility] Last Admin: 12/19/19 07:55 Dose: 25 mg Documented by: Sodium Chloride () 10 - 40 ml IV UD PRN PRN Reason: SALINE FLUSH Last Admin: 12/17/19 22:24 Dose: 10 ml Documented by: Sodium Chloride ([place] Nasal [place]) 2 spray NASAL TID PRN PRN PRN Reason: NASAL DRYNESS Last Admin: 12/18/19 13:09 Dose: 2 spray Documented by: Temazepam (Restoril) 15 mg PO QHS PRN PRN PRN Reason: INSOMNIA STROKE Vital Signs/Narrative: Vital Signs Pulse 12/19/19 07:49 80 Medical Necessity - Tobacco Use Smoking Status: Former smoker Tobacco Use: Chew Assessment/Plan All Active Problems Cellulitis of left lower leg (Acute) Hyperglycemia due to type 2 diabetes mellitus (Acute) Sepsis (Acute) Fever and chills (Acute) Left leg redness (Acute) 1. Sepsis due to LLE cellulitis SIRS criteria now 0 wbc down to on IV unasyn wbc is down to 13.5 from 17 continue gentle hydration with IVF fall precautions PT/OT on board 2. Cellulitis of the LLE: as under 1 3. Type 2 diabetes mellitus newly diagnosed. A1c is 8.2. on metformin 100mg bid. Insulin sliding scale. Accu-Cheks AC at bedtime. 4. History of fatty liver: Patient states he has a history of fatty liver. Is not clear whether it is from alcohol or from [place] lipid panel pending. 5. Obesity: BMI is 39.9. Complicates acute care, expected recovery and prognosis. 6. Anxiety: On Zoloft DVT prophylaxis: Lovenox Inpatient E&M: 92695 Subs Hosp L2
[2019-12-19 09:51] VITALS: BP 114/65; PULSE 63; RESP 18; TEMP 36.4; O2SAT 96
[2019-12-19 09:57] LABS: Cholesterol 265 mg/dL (200); High Density Lipoprotein 20 mg/dL; Triglycerides 980 mg/dL
[2019-12-19] MEDS: Insulin Lispro 100 UNIT/ML INSULN.PEN SC ×3 (11:18→22:26)
[2019-12-19 11:50] LABS: Bedside Glucose 216 mg/dL (70-110)
[2019-12-19 11:50] LABS: Bedside Glucose 207 mg/dL (70-110)
[2019-12-19 14:21] VITALS: BP 136/68; PULSE 59; RESP 18; TEMP 36.4; O2SAT 96
[2019-12-19] MEDS: Sodium Chloride 0.65% 1 SPRAY SPRAY.BTL 2 SPRAY NASAL (14:29)
[2019-12-19 16:15] LABS: Bedside Glucose 181 mg/dL (70-110)
[2019-12-19 20:10] VITALS: BP 127/72; PULSE 58; RESP 18; TEMP 36.9; O2SAT 96
[2019-12-19 23:10] LABS: Bedside Glucose 211 mg/dL (70-110)
[2019-12-20 03:39] VITALS: BP 131/75; PULSE 67; RESP 16; TEMP 36.6; O2SAT 99
[2019-12-20] MEDS: 0.9% Normal Saline 1,000 ML 150 ML IV (05:46)
[2019-12-20] MEDS: Cefazolin 2 GM in 0.9% Normal Saline 100 ML IV (05:47)
[2019-12-20 06:56] LABS: Bedside Glucose 156 mg/dL (70-110)
[2019-12-20 07:11] LABS: Absolute Lymphocyte Count 3.15 X10^3/uL (0.83-4.51); Absolute Neutrophil Count 2.9 X10^3/uL (2.0-7.7); Basophil# 0.04 X10^3/uL; Basophil% 0.6 % (0-1); Eosinophils% 2.9 % (0-5); Hematocrit 43.1 % (40-54); Hemoglobin 14.4 g/dL (13.0-16.5); Lymphocyte # 3.15 X10^3/ul (4.0); Lymphocyte % 45.4 % (19-41); Mean Corp Hgb Conc 33.4 g/dL (32-36); Mean Corpuscular Volume 92.7 fL (80-94); Mean Platelet Vol. 10.2 fl (6.2-12.0); Monocyte# 0.58 X10^3/uL; Monocyte% 8.4 % (0-10); NRBC Flagged by Analyzer 0 % (0-5); Neutrophil # 2.93 X10^3/uL (2.7-7.7); Neutrophil % 42.1 % (47-70); Platelet Count 146 K/mm3 (150-450); RBC Distribution Width CV 13.3 % (11.6-14.6); RBC Distribution Width SD 45.4 fl (35.1-43.9); Red Blood Count 4.65 M/mm3 (4.6-6.2); White Blood Count 6.9 K/mm3 (4.4-11.0)
[2019-12-20 07:18] LABS: Anion Gap 8 (5-15); BUN 12 mg/dL (7-18); BUN/Creat Ratio 16.7 RATIO (10-20); Calcium,Total 8.4 mg/dL (8.5-10.1); Chloride 104 mmol/L (98-107); Creatinine, Serum 0.72 mg/dL (0.70-1.30); EST Glomerular Filtration Rate 123 mL/min (>60); Est Glom Filt Rate - Afr Amer 149 mL/min (>60); Estimated Creatinine Clearance 133.23 ml/min; Glucose 166 mg/dL (74-106); Potassium 3.8 mmol/L (3.5-5.1); Sodium Level 138 mmol/L (136-145)
--- NOTE | 2019-12-20 07:51 | VDLE_ITS ---
Reason For Study: swelling Procedure LEFT Exam performed portable in patient room. GSV is normal. The exam was abbreviated due to the COVID 19 CFV is compressible, spontaneous, phasic, protocol. competent, and demonstrates normal The exam was diagnostic. augmentation. A preliminary report was called and/or faxed FV is compressible, spontaneous, phasic, to Priya HUBER. competent and demonstrates normal augmentation. POP V is compressible, spontaneous, phasic, competent and demonstrates normal augmentation. T/P Trunk is compressible. PTV is compressible. LT PerV is compressible. Interpretation Summary There is no evidence of left lower extremity deep vein thrombosis. Left great saphenous vein appears patent and compressible segmentally. Abbreviated Covid-19 protocol utilized Ordering Physician: Coty Gillespie Performed By: Bobby Potter RVT
[2019-12-20] MEDS: metFORMIN HCl 1,000 MG Tablet 1000 MG PO (07:53)
[2019-12-20 08:36] VITALS: BP 155/83; PULSE 77; RESP 16; TEMP 37.2; O2SAT 99
[2019-12-20 09:00] VITALS: RESP 18
--- NOTE | 2019-12-20 09:18 | DCINST_ITS ---
- Discharge Diagnoses Current Active Problems: Current Active and Chronic Problems Cellulitis of left lower leg (Acute) Hyperglycemia due to type 2 diabetes mellitus (Acute) Sepsis (Acute) Fever and chills (Acute) Left leg redness (Acute) You will use the following diet at home:: Cardiac Your food should be the consistency of: Regular Your liquids should be the consistency of: Regular/Thin Discharge Activity: Return to Normal Activity Weight Bearing Status: Weight bearing as tolerated Call your doctor if your incision/area has: Increased Pain/ Swelling, Increased Redness Call your doctor if you observe: Fever of 101 or Higher, Shortness of breath, Dizziness, Fainting spells Instructions: Oral Therapy for Type 2 Diabetes, Diabetes: Getting Started with Exercise, ED Cellulitis Additional Instructions: 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 Allergies/Adverse Reactions: Allergies ciprofloxacin [From Cipro] Allergy (Verified 12/17/19 21:34) tremors hydromorphone [From Dilaudid] Adverse Reaction (Verified 12/17/19 17:11) Low blood pressure meperidine [From Demerol] Adverse Reaction (Verified 12/17/19 17:11) Itching Sulfa (Sulfonamide Antibiotics) Adverse Reaction (Verified 12/17/19 21:34) dizziness STEROIDS Allergy (Uncoded 12/17/19 17:11) Anaphylaxis Medications to take at Discharge Sertraline HCl [Zoloft] 25 mg PO DAILY 12/17/19 Cephalexin [Keflex] 500 mg PO Q6 7 Days #28 cap 12/20/19 Metformin HCl 500 mg PO BID #60 tab 12/20/19 The following prescriptions were given: Cephalexin [Keflex] 500 mg PO Q6 7 Days #28 cap Transmission Status: Pending to [facility] Metformin HCl 500 mg PO BID #60 tab Transmission Status: Pending to [facility] Primary Care Physician: Cliff Doctor,Out of [NON-STAFF] - Please follow up with your Primary Care Physician in: follow up with PCP in [place] in one week Test Results: Test results from this visit will be discussed in further detail at your follow- up appointment, if applicable. Proposed Discharge Date: 12/20/19
--- NOTE | 2019-12-20 09:23 | PCM.DC.SUM ---
Discharge Date and Diagnosis - Problem List Patient Problems: Active and Suspected Problems Cellulitis of left lower leg (Acute) Hyperglycemia due to type 2 diabetes mellitus (Acute) Sepsis (Acute) Fever and chills (Acute) Left leg redness (Acute) Date of Admission: 12/17/19 Date of Discharge: 12/20/19 - Primary Discharge Diagnosis Active and Suspected Problems Cellulitis of left lower leg (Acute) Hyperglycemia due to type 2 diabetes mellitus (Acute) Sepsis (Acute) Fever and chills (Acute) Left leg redness (Acute) - Secondary Discharge Diagnosis Chronic Problems Anxiety and depression (Chronic) Type 2 diabetes mellitus (Chronic) Hospital Course and Treatment Imaging Results: Diagnostic Data Chest X-Ray 12/17/19 17:37 IMPRESSION: Left hemidiaphragm is mildly elevated. There is left costophrenic angle blunting which may represent small effusion or pleural reaction. Electronically Signed: Buddy Trujillo MD at 18:18 EDT , Service support , Operations: None Procedures: None Summary of Care Provided: The patient is a 49 year old M with a past medical history of type 2 diabetes mellitus who was admitted through the ED on 12/17/2019 with a complaint of fever and chills as well as left lower extremity redness and warmth. 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 On admission, white cell count was elevated at 17.2 and lactic acid was not elevated. Chest x-ray showed no evidence of pneumonia or any acute cardiopulmonary process. Temperature was also elevated at 100.6. He was admitted and managed for sepsis due to left lower extremity cellulitis. He was initially started on IV Unasyn but this was switched to IV Ancef on admission. Patient stated that he had had cellulitis in the same left lower extremity a few months prior to this admission he had been treated with outpatient therapy for this. Patient was also noted to be hyperglycemic and A1c done was 8.2. There was no previous documentation of type 2 diabetes mellitus and patient was started on metformin thousand gram twice daily. However on further questioning, patient said he had been diagnosed with diabetes back in [place] but had not been compliant with his metformin 500 mg twice daily. Patient's white cell counts trended down and fever resolved. He still did have mild pain in his left lower extremity but this also improved and redness and swelling also improved markedly. Duplex done of the left lower extremity was negative for any PE. Patient remained stable and was discharged on 12/20/2019. Patient said he was going to call his company to see if he could be flown back to [place] as he was advised that driving such a long distance was not advisable in light of his current symptoms. Patient seen and examined prior to discharge. He still complained of mild. Will await. His leg. He however had no fever, no chills, no nausea vomiting or diarrhea and redness had improved. Review of systems otherwise negative. Labs and vitals reviewed. Home medication reviewed and reconciled. o/e: Vital Signs Temp Pulse Resp BP Pulse Ox 98.9 F 77 18 155/83 H 99 12/20/19 08:36 12/20/19 08:36 12/20/19 09:00 12/20/19 08:36 12/20/19 08:36 General: Alert, Oriented x3, Cooperative, No apparent distress HEENT: Atraumatic, PERRLA, EOMI, Normocephalic Oral: Moist Mucosa Neck: Supple, No JVD, Negative Carotid Bruits Lungs: Clear to auscultation, Normal air movement, No rhonchi, No wheeze Cardiovascular: Regular rate, Regular Rhythm, Normal S1, Normal S2, No murmurs Abdomen: Bowel Sounds Present, Soft, Non Tender, Non-Distended, No Hepato-splenomegaly Extremities: No clubbing, No cyanosis, No edema, Capillary Refill Less than 3 Seconds, - Skin: - - redness, swelling and pain over left velez area has improved markedly. Musculoskeletal: No Tenderness to Palpation of Joints or Extremities, - - no calf swelling or tenderness Neurological: Cranial nerves II-XII grossly intact Psych/Mental Status: Normal Affect, Appropriate, Alert and oriented to time, place, person, mood and affect Plan as above. He was discharged with a prescription for p.o. Keflex 500 mg every 6 hours for 7 days. He was also counseled to be compliant with his metformin as diabetes could be a predisposing factor for recurrent cellulitis. Patient Problems: Active and Suspected Problems Cellulitis of left lower leg (Acute) Hyperglycemia due to type 2 diabetes mellitus (Acute) Sepsis (Acute) Fever and chills (Acute) Left leg redness (Acute) - Physical Exam Vitals/I&O's: Vital Signs Temp Pulse Resp BP Pulse Ox 98.9 F 77 18 155/83 H 99 12/20/19 08:36 12/20/19 08:36 12/20/19 09:00 12/20/19 08:36 12/20/19 08:36 Oxygen Flow Rate (L/min) 2 Oxygen Delivery Method Room Air Weight: 293 lb 14.019 oz Body Mass Index (BMI) 39.8 Intake and Output for Last 24 Hours 12/18/19 12/19/19 12/20/19 23:59 23:59 23:59 Intake Total 5032.5 / 5032.5 5555.0 / 5555.0 1515 / 1515 Output Total 1675 / 1675 550 / 550 Balance 3357.5 / 3357.5 5005.0 / 5005.0 1515 / 1515 Microbiology Past 72 Hours 12/17/19 18:10 Urine, Clean Catch Urine Culture - Preliminary Culture exhibits no growth. Laboratory Results 12/19/19 06:20: Triglycerides 980 H, Cholesterol 265 H, LDL Cholesterol TNP, VLDL Cholesterol TNP, HDL Cholesterol 20 L 12/19/19 11:17: POC Glucose 216 H 12/19/19 11:43: POC Glucose 207 H 12/19/19 15:48: POC Glucose 181 H 12/19/19 22:23: POC Glucose 211 H 12/20/19 06:02: WBC 6.9, RBC 4.65, Hgb 14.4, Hct 43.1, MCV 92.7, MCH 31.0, MCHC 33.4, RDW Std Deviation 45.4 H, RDW Coeff of Lupe 13.3, Plt Count 146 L, MPV 10.2, Immature Gran % (Auto) 0.600, Neut % (Auto) 42.1 L, Lymph % (Auto) 45.4 H, Bailey % (Auto) 8.4, Eos % (Auto) 2.9, Baso % (Auto) 0.6, Absolute Neuts (auto) 2.9, Absolute Lymphs (auto) 3.15, Nucleated RBC % 0 12/20/19 06:02: Sodium 138, Potassium 3.8, Chloride 104, Carbon Dioxide 26.0, Anion Gap 8, BUN 12, Creatinine 0.72, Estim Creat Clear Calc 133.23, Est GFR (MDRD) Af Amer 149, Est GFR (MDRD) Non-Af 123, BUN/Creatinine Ratio 16.7, Glucose 166 H, Calcium 8.4 L 12/20/19 06:39: POC Glucose 156 H Current Medications Acetaminophen (Tylenol) 650 mg PO Q6H PRN PRN PRN Reason: Pain Score 1-10/Temp > 100.7 F Last Admin: 12/19/19 14:28 Dose: 650 mg Documented by: Dextrose (D50w Syringe) 0 gm IV X1 PRN; Protocol PRN Reason: Hypoglycemia Glucagon () 1 mg IM .X1 PRN PRN Reason: Hypoglycemia Heparin Sodium (Porcine) (Heparin Na) 5,000 unit SC Q12 [facility] Last Admin: 12/19/19 22:26 Dose: 5,000 unit Documented by: Sodium Chloride () 1,000 mls @ 150 mls/hr IV .Q6H40M [facility] Last Infusion: 12/20/19 05:48 Dose: 0 mls/hr Documented by: Cefazolin Sodium 2 gm/ Sodium (Chloride) 110 mls @ 150 mls/hr IV Q8 [facility] Last Infusion: 12/20/19 06:37 Dose: Infused Documented by: Insulin Human Lispro (Humalog Kwikpen (Bkc)) 0 unit SC ACHS [facility]; Protocol Last Admin: 12/20/19 06:40 Dose: Not Given Documented by: Metformin HCl (Glucophage) 1,000 mg PO BIDCM [facility] Last Admin: 12/20/19 07:53 Dose: 1,000 mg Documented by: Ondansetron HCl (Zofran) 4 mg IV Q8H PRN PRN PRN Reason: NAUSEA/VOMITING Last Admin: 12/17/19 22:24 Dose: 4 mg Documented by: Oxycodone HCl (Oxyir) 10 mg PO Q4H PRN PRN PRN Reason: Pain Score 4-10/10 Last Admin: 12/18/19 21:52 Dose: 10 mg Documented by: Sertraline HCl (Zoloft) 25 mg PO DAILY [facility] Last Admin: 12/19/19 07:55 Dose: 25 mg Documented by: Sodium Chloride () 10 - 40 ml IV UD PRN PRN Reason: SALINE FLUSH Last Admin: 12/17/19 22:24 Dose: 10 ml Documented by: Sodium Chloride (Rice Nasal [place]) 2 spray NASAL TID PRN PRN PRN Reason: NASAL DRYNESS Last Admin: 12/19/19 14:29 Dose: 2 spray Documented by: Temazepam (Restoril) 15 mg PO QHS PRN PRN PRN Reason: INSOMNIA Discharge Diet: Low fat/ Low Cholesterol Discharge Activity: Return to Normal Activity Weight Bearing Status: Weight bearing as tolerated Call your doctor if your incision/area has: Increased Pain/ Swelling, Increased Redness Call your doctor if you observe: Fever of 101 or Higher, Shortness of breath, Dizziness, Fainting spells Home Medications: Medications to take at Discharge Sertraline HCl [Zoloft] 25 mg PO DAILY 12/17/19 Cephalexin [Keflex] 500 mg PO Q6 7 Days #28 cap 12/20/19 Metformin HCl 500 mg PO BID #60 tab 12/20/19 Following Prescrptions Were Given to Patient: Cephalexin [Keflex] 500 mg PO Q6 7 Days #28 cap Transmission Status: Received by [facility] Metformin HCl 500 mg PO BID #60 tab Transmission Status: Received by [facility] Primary Care Physician: [facility] Doctor,Out of [NON-STAFF] - Please follow up with your Primary Care Physician in: follow up with PCP in [place] in one week Patient Instructions: Oral Therapy for Type 2 Diabetes, Diabetes: Getting Started with Exercise, ED Cellulitis Disposition: Home Minutes spent on discharge:: 40 Patient Condition:: Stable Medical Necessity - Tobacco Use Smoking Status: Former smoker Tobacco Use: Chew Meaningful Use Info Meaningful Use Diagnoses (Choose all that apply): None applicable Inpatient E&M: 58021 Disch Hosp
[2019-12-20] MEDS: Sertraline 50 MG Tablet 25 MG PO (11:12)
[2019-12-20] MEDS: Heparin Injection (Vial) 5,000 UNIT/ML VIAL 5000 UNIT SC (11:12)
[2019-12-20 11:25] LABS: Bedside Glucose 173 mg/dL (70-110)
[2019-12-20 12:02] VITALS: BP 140/74; PULSE 68; RESP 18; TEMP 37.1; O2SAT 98
== END 2019-12-20 12:16 | disposition home or self-care (01) | DRG 872 ==
LOC: ED 20:42 → MS3 20:50
PROVIDERS: Admitting Provider Internal Medicine; Emergency Provider Emergency Medicine; Visit Provider Student in an Organized Health Care Education/Training Program
DX: A41.9 Sepsis, unspecified organism (principal); L03.116 Cellulitis of left lower limb; E11.65 Type 2 diabetes mellitus with hyperglycemia; F32.9 Major depressive disorder, single episode, unspecified; F41.9 Anxiety disorder, unspecified; K76.0 Fatty (change of) liver, not elsewhere classified; E66.01 Morbid (severe) obesity due to excess calories; Z68.39 Body mass index [BMI] 39.0-39.9, adult; Z71.3 Dietary counseling and surveillance; Z91.14 Patient's other noncompliance with medication regimen; Z79.84 Long term (current) use of oral hypoglycemic drugs; Z87.891 Personal history of nicotine dependence
CPT/HCPCS: 36415; 71045; 80048; 80053; 80061; 81001; 82962; 83036; 83605; 84484; 85025; 85610; 85730; 87040; 87086; 93971; 96365; 96367; 97802; 99285; 99406; J7030; A4216; J0295; J2405